=== PATIENT | female | born 1995 | race American Indian/Alaskan Native ===

== ENCOUNTER 2017-03-29 03:09 | Emergency (ER) | payer SELFPAY ==
[2017-03-29 03:20] VITALS: BP 106/68
== END 2017-03-29 07:02 | disposition left against medical advice (07) ==
LOC: ED 03:09
DX: R51 Headache (principal); Z53.21 Procedure and treatment not carried out due to patient leaving prior to being seen by health care provider

== ENCOUNTER 2021-12-24 13:32 | Emergency (ER) | payer OTHER ==
[2021-12-24 13:55] VITALS: BP 122/59
[2021-12-24] MEDS ORDERED: ACETAMINOPHEN 500 MG TAB PO ONE (14:22)
[2021-12-24] MEDS ORDERED: IBUPROFEN 600 MG TAB PO ONE (14:22)
--- NOTE | 2021-12-24 15:08 | XRay Report ---
Sacrum/coccyx-3 views INDICATION: Fall - pain. COMPARISON: None available. IMPRESSION: No acute osseous abnormality. Normal alignment. No significant DJD. Soft tissues are u nremarkable. IUD in place in the midline. Signer Name: Florentino Ramírez MD Signed: 12/24/2021 3:04 PM Workstation Name: [id number]
--- NOTE | 2021-12-24 15:48 | Emergency Department Report ---
ED Fall HPI - General Chief Complaint: Fall Stated Complaint: HAND/WRIST/BUTTOCK PAIN/FALL Source: patient Mode of arrival: Ambulatory - History of Present Illness Initial Comments: Patient is a 26-year-old -[place] female with no past medical history who presents to the ED with complaint of acute onset persistent coccygeal and tailbone pain after she tripped and fell down on a concrete floor 24 hours ago and landed on her buttocks. Patient states that the pain has been constant and worse especially when she sits down, lays down or with relation. Patient denies nausea and vomiting, seizures, syncope, dizziness, chest pain or shortness of breath, hemoptysis, abdominal pain, numbness and tingling or weakness of upper and lower extremities bilaterally. MD Complaint: fall, other (coccygeal pain) -: Sudden, hour(s) (24) Fall From: standing When Fall Occurred: 24 hours SULFUR BURNER Fall Witnessed: yes, by family Place Fall Occurred: home Loss of Consciousness: none Prolonged Down Time?: no Symptoms Prior to Fall: none Location: buttocks (coccygeal) Severity: severe Severity scale (0 -10): 8 Quality: sharp, aching Context: tripped/slipped Associated Symptoms: denies. denies: headache, neck pain, numbness, weakness, chest paint, shortness of breath, abdominal pain, hematuria, lightheaded, confusion - Related Data Previous Rx's Medication Instructions Recorded Last Taken Type Permethrin 5% [Acticin 5% CREAM] 1 applicatio TP ONCE #60 gram 07/07/13 Unknown Rx Prednisone 20 mg PO QDAY #5 tablet 07/07/13 Unknown Rx Triamcinolone 0.1% [Kenalog 0.1% 1 applic TP BID PRN #30 gram 07/07/13 Unknown Rx CREAM] Baclofen 20 mg PO Q12H PRN #20 tab 12/24/21 Unknown Rx Ibuprofen [Motrin] 600 mg PO Q8H PRN #30 tablet 12/24/21 Unknown Rx traMADoL [Ultram] 50 mg PO Q6HR PRN #12 tablet 12/24/21 Unknown Rx Allergies Allergy/AdvReac Type Severity Reaction Status Date / Time chocolate flavor Allergy Rash Verified 12/24/21 13:55 ED Review of Systems ROS: Stated complaint: HAND/WRIST/BUTTOCK PAIN/FALL Other details as noted in HPI Constitutional: denies: chills, fever Eyes: denies: eye pain, eye discharge, vision change ENT: denies: ear pain, throat pain Respiratory: denies: cough, shortness of breath, wheezing Cardiovascular: denies: chest pain, palpitations Endocrine: no symptoms reported Gastrointestinal: denies: abdominal pain, nausea, diarrhea Genitourinary: denies: urgency, dysuria, discharge Musculoskeletal: back pain (lower back and coccygeal pain). denies: joint swelling, arthralgia Skin: denies: rash, lesions Neurological: denies: headache, weakness, paresthesias Psychiatric: denies: anxiety, depression Hematological/Lymphatic: denies: easy bleeding, easy bruising ED Past Medical Hx - Surgical History Additional Surgical History: C- Section, knee surgery - Social History Smoking Status: Never Smoker Substance Use Type: None - Medications Home Medications: Home Medications Medication Instructions Recorded Confirmed Last Taken Type Permethrin 5% [Acticin 5% CREAM] 1 applicatio TP ONCE #60 gram 07/07/13 Unknown Rx Prednisone 20 mg PO QDAY #5 tablet 07/07/13 Unknown Rx Triamcinolone 0.1% [Kenalog 0.1% 1 applic TP BID PRN #30 gram 07/07/13 Unknown Rx CREAM] Baclofen 20 mg PO Q12H PRN #20 tab 12/24/21 Unknown Rx Ibuprofen [Motrin] 600 mg PO Q8H PRN #30 tablet 12/24/21 Unknown Rx traMADoL [Ultram] 50 mg PO Q6HR PRN #12 tablet 12/24/21 Unknown Rx ED Physical Exam - General Limitations: No Limitations General appearance: alert, in no apparent distress - Head Head exam: Present: atraumatic, normocephalic, normal inspection - Eye Eye exam: Present: normal appearance, PERRL, EOMI Pupils: Present: normal accommodation - ENT ENT exam: Present: normal exam, normal orophraynx, mucous membranes moist, TM's normal bilaterally, normal external ear exam - Neck Neck exam: Present: normal inspection, full ROM. Absent: tenderness - Respiratory Respiratory exam: Present: normal lung sounds bilaterally. Absent: respiratory distress, wheezes, rales, rhonchi, chest wall tenderness, accessory muscle use, decreased breath sounds, prolonged expiratory - Cardiovascular Cardiovascular Exam: Present: regular rate, normal rhythm, normal heart sounds. Absent: systolic murmur, diastolic murmur, rubs, gallop - GI/Abdominal GI/Abdominal exam: Present: soft, normal bowel sounds. Absent: tenderness, guarding, hyperactive bowel sounds, hypoactive bowel sounds, organomegaly - Extremities Exam Extremities exam: Present: normal inspection, full ROM, normal capillary refill. Absent: tenderness - Back Exam Back exam: Present: normal inspection, full ROM, tenderness (Palpable coccygeal and sacral tenderness), muscle spasm, paraspinal tenderness. Absent: CVA tende rness (R), CVA tenderness (L), rash noted - Neurological Exam Neurological exam: Present: alert, oriented X3, CN II-XII intact, normal gait, reflexes normal - Psychiatric Psychiatric exam: Present: normal affect, normal mood - Skin Skin exam: Present: warm, dry, intact, normal color. Absent: rash ED Course Vital Signs 12/24/21 12/24/21 13:52 15:04 Temperature 98.1 F Pulse Rate 61 Respiratory 16 16 Rate Blood Pressure 122/59 [Right] O2 Sat by Pulse 98 Oximetry ED Medical Decision Making - Radiology Data Radiology results: report reviewed, image reviewed [facility] [address] [place] [address] XRay Report Signed Patient: SAMSON MA MR# : [id number] : 1995 Acct:[id number] Age/Sex: 26 / F ADM Date: 12/24/21 Loc: ED Attending Dr: Ordering Physician: CHELSEA QUIGLEY Date of Service: 12/24/21 Procedure(s): XR spine sacrum/coccyx 2+V Accession Number(s): [id number] cc: CHELSEA QUIGLEY Fluoro Time In Minutes: Sacrum/coccyx-3 views INDICATION: Fall - pain. COMPARISON: None available. IMPRESSION: No acute osseous abnormality. Normal alignment. No significant DJD. Soft tissues are unremarkable. IUD in place in the midline. Signer Name: Florentino Ramírez MD Signed: 12/24/2021 3:04 PM Workstation Name: [id number] Transcribed By: JW Dictated By: Florentino Ramírez MD Electronically Authenticated By: Florentino Ramírez MD Signed Date/Time: 12/24/211503 DD/ 03 TD/TT: - Medical Decision Making This is a 26-year-old -[place] female with no past medical history who presents to the ED with complaint of acute onset persistent coccygeal and tailbone pain after she tripped and fell down on a concrete floor 24 hours ago and landed on her buttocks. Patient states that the pain has been constant and worse especially when she sits down, lays down or with relation. In the ED, patient is alert and oriented x3 and is not in any distress. Patient was treated for pain. The coccygeal and sacral x-ray showed no acute fractures or subluxation constipation. Patient was discharged home on medications and advised to follow-up with her primary care physician in 5 to 7 days for reevaluation. Patient was advised return to the ED immediately if symptoms get worse. - Differential Diagnosis Coccygeal fracture; Critical care attestation.: If time is entered above; I have spent that time in minutes in the direct care of this critically ill patient, excluding procedure time. ED Disposition Clinical Impression: Strain of muscle, fascia and tendon of lower back, initial encounter Coccygeal contusion Qualifiers: Encounter type: initial encounter Qualified Code(s): S30.0XXA - Contusion of lower back and pelvis, initial encounter Disposition: HOME / SELF CARE / HOMELESS Is pt being admited?: No Does the pt Need Aspirin: No Condition: Stable Instructions: Muscle Strain, [id number], Contusion, [id number], Tailbone Injury, [id number], Lumbosacral Strain Additional Instructions: The coccygeal and sacral x-ray showed no acute fractures or subluxations . Therefore take medications with food, drink plenty of fluids and follow up with your Primary care physician in 7-10 days for reevaluation. Return to the ED immediately if symptoms get worse. Prescriptions: Baclofen 20 mg PO Q12H PRN #20 tab PRN Reason: Muscle Spasm Ibuprofen [Motrin] 600 mg PO Q8H PRN #30 tablet PRN Reason: Pain traMADoL [Ultram] 50 mg PO Q6HR PRN #12 tablet PRN Reason: Pain Referrals: [facility] [Provider Group] - 7-10 days Time of Disposition: 15:54 Print Language: LUXEMBOURGER
== END 2021-12-24 16:43 | disposition home or self-care (01) ==
LOC: ED 13:32
DX: S39.012A Strain of muscle, fascia and tendon of lower back, initial encounter (principal); W19.XXXA Unspecified fall, initial encounter; Y93.89 Activity, other specified; Y92.89 Other specified places as the place of occurrence of the external cause; Y99.8 Other external cause status
CPT/HCPCS: 72220; 99283